=== PATIENT | male | born 1935 | race Caucasian/White ===

== ENCOUNTER 2017-08-07 15:57 | Emergency (ER) | payer MEDICARE, OTHER ==
[2017-08-07 16:40] VITALS: BP 140/71
[2017-08-07] MEDS ORDERED: methylPREDNISolone Sodium Succinate 125 MG/2 ML SDV IM ONE (17:25)
--- NOTE | 2017-08-07 17:30 | EDM.PDOC ---
ED HPI GENERAL MEDICAL PROBLEM - General Chief Complaint: Allergic Reaction Stated Complaint: ALLERGIC REACTION Time Seen by Provider: 08/07/17 16:50 Source of Information: Reports: Patient, Family History Limitations: Reports: No Limitations - History of Present Illness INITIAL COMMENTS - FREE TEXT/NARRATIVE: Pt just got back from [place] from visiting his family . He had some of his usual foods, nothing out of the ordinary. He then noted that his tongue was swelling. He took 50mg of benadryl. He has been here for about 1/2 hour and he feels like the swelling is going down. This did happen one other time and at that time he was on lisinopril and he was taken off of it at that time. Onset: Today, Sudden Duration: Hour(s): Location: Reports: Face, Other ( tongue was swollen. ) Associated Symptoms: Reports: No Other Symptoms - Related Data Allergies Allergy/AdvReac Type Severity Reaction Status Date / Time DIAGNOSTIC X-RAY MATERIAL Allergy Cannot Uncoded 07/12/16 14:14 Remember Home Meds: Home Meds Acetaminophen 325 mg PO Q6H PRN 03/06/14 [History] Aspirin [Tray Chewable] 325 mg PO DAILY 03/06/14 [History] Cyclobenzaprine [Flexeril] 10 mg PO TID PRN 03/06/14 [History] Gabapentin [Neurontin] 400 mg PO TID 03/06/14 [History] Gemfibrozil [Lopid] 600 mg PO BIDAC 03/06/14 [History] Multivitamin [Multivitamins] 1 each PO DAILY 03/06/14 [History] Pravastatin [Pravachol] 40 mg PO BEDTIME 03/06/14 [History] Warfarin Sliding Scale [Coumadin Sliding Scale] 5 each PO MOWEFR 03/06/14 [ History] amLODIPine Besylate [Amlodipine Besylate] 10 mg PO DAILY 03/06/14 [History] metFORMIN [metFORMIN XR] 1,000 mg PO BIDM 03/06/14 [History] Cholecalciferol (Vitamin D3) [Cholecalciferol] 2,000 units PO DAILY 04/01/15 [ History] Furosemide [Lasix] 10 mg PO DAILY 04/01/15 [History] Warfarin Sliding Scale [Coumadin Sliding Scale] 2.5 mg PO ASDIRECTED 04/01/15 [ History] Cyanocobalamin (Vitamin B-12) [B-12] 1 tab PO DAILY 07/12/16 [History] Magnesium Oxide 400 mg PO DAILY 07/12/16 [History] Tamsulosin [Flomax] 0.4 mg PO DAILY 07/12/16 [History] Metoprolol Tartrate 25 mg PO BID 08/07/17 [History] prednisoLONE Acetate [Pred Forte 1% Ophth Susp] 5 ml EYEBOTH ASDIRECTED [History] Past Medical History HEENT History: Reports: Hard of Hearing Cardiovascular History: Reports: Afib, High Cholesterol, Hypertension, Stents Genitourinary History: Reports: BPH Neurological History: Reports: Other (See Below) Other Neuro History: Bels palsy Endocrine/Metabolic History: Reports: Diabetes, Type II - Past Surgical History Cardiovascular Surgical History: Reports: Coronary Artery Bypass, Coronary Artery Stent Social & Family History - Tobacco Use Smoking Status *Q: Never Smoker Years of Tobacco use: 60 Second Hand Smoke Exposure: No - Caffeine Use Caffeine Use: Reports: Coffee - Alcohol Use Days Per Week of Alcohol Use: 7 Number of Drinks Per Day: 2 Total Drinks Per Week: 14 - Recreational Drug Use Recreational Drug Use: No ED ROS ALLERGIC REACTION - Review of Systems Review Of Systems: See Below Constitutional: Reports: No Symptoms HEENT: Reports: Other ( tongue is swollen) Respiratory: Reports: Other (pt has not had sob. ) Cardiovascular: Reports: No Symptoms Endocrine: Reports: No Symptoms GI/Abdominal: Reports: No Symptoms : Reports: No Symptoms Musculoskeletal: Reports: No Symptoms Skin: Reports: No Symptoms ED EXAM GENERAL NO PERIP PULSE - Physical Exam Exam: See Below Text/Narrative:: Pt arrived with swelling of his tongue. He did take benadryl prior to arriving and the swelling has gone down. Exam Limited By: No Limitations General Appearance: Alert, Anxious, Mild Distress Nose: Normal Inspection Throat/Mouth: Other ( Tongue is thick and swollen throat does not look swollen. ) Head: Atraumatic Neck: Normal Inspection Respiratory/Chest: No Respiratory Distress, Other (pt has notfelt sob and is not wheezy. ) Cardiovascular: Regular Rate, Rhythm GI/Abdominal: Soft, Non-Tender (Male) Exam: Deferred Rectal (Males) Exam: Deferred Back Exam: Normal Inspection Extremities: Normal Inspection Neurological: Alert, Oriented Psychiatric: Normal Affect Skin Exam: Other (pt has no rash. ) Course - Vital Signs Last Recorded V/S: Last Vital Signs Temp 36.8 C 08/07/17 16:39 Pulse 74 08/07/17 16:39 Resp 18 08/07/17 16:39 BP 140/71 08/07/17 16:39 Pulse Ox 95 08/07/17 16:39 - Re-Assessments/Exams Free Text/Narrative Re-Assessment/Exam: 08/07/17 17:32 pt was given solu medrol 125im. Departure - Departure Time of Disposition: 17:32 Disposition: Home, Self-Care 01 Condition: Fair Clinical Impression: Allergic angioedema - Discharge Information Referrals: John Damon MD [Primary Care Provider] - Care Plan Goals: rtc if worse, use benadryl 50mg tonight before going to bed.
== END 2017-08-07 17:57 | disposition home or self-care (01) ==
LOC: JP.ED 15:57
DX: T78.3XXA Angioneurotic edema, initial encounter (principal); I48.91 Unspecified atrial fibrillation; E78.00 Pure hypercholesterolemia, unspecified; E11.9 Type 2 diabetes mellitus without complications; I10 Essential (primary) hypertension; Z95.5 Presence of coronary angioplasty implant and graft; Z95.1 Presence of aortocoronary bypass graft; Z79.84 Long term (current) use of oral hypoglycemic drugs; Z79.01 Long term (current) use of anticoagulants; Z79.82 Long term (current) use of aspirin
CPT/HCPCS: 96372; 99283; J2930

== ENCOUNTER 2018-03-16 14:24 | Emergency (ER) | payer MEDICARE, OTHER ==
[2018-03-16 14:39] VITALS: BP 156/74
[2018-03-16] MEDS ORDERED: methylPREDNISolone Sodium Succinate 125 MG/2 ML SDV IM ONE (15:04)
--- NOTE | 2018-03-16 15:07 | EDM.PDOC ---
ED HPI GENERAL MEDICAL PROBLEM - General Chief Complaint: Allergic Reaction Stated Complaint: FACIAL SWELLING Time Seen by Provider: 03/16/18 14:59 Source of Information: Reports: Patient, Old Records, RN Notes Reviewed History Limitations: Reports: No Limitations - History of Present Illness INITIAL COMMENTS - FREE TEXT/NARRATIVE: 82-year-old gentleman presents to the emergency department today with a rash on his trunk and arms as well as some facial swelling predominantly around the lips denies any difficulty breathing denies any difficulty swallowing, does admit to new laundry detergent about 10 days prior - Related Data Allergies Allergy/AdvReac Type Severity Reaction Status Date / Time DIAGNOSTIC X-RAY MATERIAL Allergy Cannot Uncoded 11/17/17 14:33 Remember Home Meds: Home Meds Acetaminophen 325 mg PO Q6H PRN 03/06/14 [History] Aspirin [Tray Chewable] 325 mg PO DAILY 03/06/14 [History] Cyclobenzaprine [Flexeril] 10 mg PO TID PRN 03/06/14 [History] Gabapentin [Neurontin] 400 mg PO TID 03/06/14 [History] Gemfibrozil [Lopid] 600 mg PO BIDAC 03/06/14 [History] Multivitamin [Multivitamins] 1 each PO DAILY 03/06/14 [History] Pravastatin [Pravachol] 40 mg PO BEDTIME 03/06/14 [History] Warfarin Sliding Scale [Coumadin Sliding Scale] 5 each PO MOWEFR 03/06/14 [ History] amLODIPine Besylate [Amlodipine Besylate] 10 mg PO DAILY 03/06/14 [History] metFORMIN [metFORMIN XR] 1,000 mg PO BIDM 03/06/14 [History] Cholecalciferol (Vitamin D3) [Cholecalciferol] 2,000 units PO DAILY 04/01/15 [ History] Furosemide [Lasix] 10 mg PO DAILY 04/01/15 [History] Warfarin Sliding Scale [Coumadin Sliding Scale] 2.5 mg PO ASDIRECTED 04/01/15 [ History] Cyanocobalamin (Vitamin B-12) [B-12] 1 tab PO DAILY 07/12/16 [History] Magnesium Oxide 400 mg PO DAILY 07/12/16 [History] Tamsulosin [Flomax] 0.4 mg PO DAILY 07/12/16 [History] Metoprolol Tartrate 25 mg PO BID 08/07/17 [History] Past Medical History HEENT History: Reports: Hard of Hearing Cardiovascular History: Reports: Afib, High Cholesterol, Hypertension, Stents Genitourinary History: Reports: BPH Musculoskeletal History: Reports: Arthritis Neurological History: Reports: Other (See Below) Other Neuro History: Bels palsy Endocrine/Metabolic History: Reports: Diabetes, Type II Dermatologic History: Reports: Other (See Below) Other Dermatologic History: hives on chest and back given benadryl 25mg at clinic today and told to come to the ER - Past Surgical History Cardiovascular Surgical History: Reports: Coronary Artery Bypass, Coronary Artery Stent Social & Family History - Tobacco Use Smoking Status *Q: Current Some Day Smoker Years of Tobacco use: 1 Packs/Tins Daily: 1 Second Hand Smoke Exposure: No - Caffeine Use Caffeine Use: Reports: Coffee - Alcohol Use Days Per Week of Alcohol Use: 7 Number of Drinks Per Day: 2 Total Drinks Per Week: 14 - Recreational Drug Use Recreational Drug Use: No ED ROS ALLERGIC REACTION - Review of Systems Review Of Systems: See Below Constitutional: Reports: No Symptoms HEENT: Reports: No Symptoms Respiratory: Reports: No Symptoms Cardiovascular: Reports: No Symptoms Skin: Reports: Pruritis, Rash ED EXAM GENERAL NO PERIP PULSE - Physical Exam Exam: See Below Exam Limited By: No Limitations General Appearance: Alert, WD/WN, No Apparent Distress Head: Atraumatic, Normocephalic Neck: Normal Inspection, Supple, Non-Tender, Full Range of Motion Respiratory/Chest: No Respiratory Distress, Lungs Clear, Normal Breath Sounds, No Accessory Muscle Use Cardiovascular: Regular Rate, Rhythm, No Murmur Skin Exam: Warm, Rash, Other (Hives) Course - Vital Signs Last Recorded V/S: Last Vital Signs Temp 98.4 F 03/16/18 14:38 Pulse 66 03/16/18 14:38 Resp 18 03/16/18 14:38 BP 156/74 H 03/16/18 14:38 Pulse Ox - Orders/Labs/Meds Meds: Medications Discontinued Medications Generic Name Dose Route Start Last Admin Trade Name Freq PRN Reason Stop Dose Admin Methylprednisolone Sodium Succinate 125 mg 03/16/18 15:04 03/16/18 15:11 Solu-Medrol IM 03/16/18 15:05 125 mg ONETIME ONE Administration Departure - Departure Time of Disposition: 15:38 Disposition: Home, Self-Care 01 Condition: Good Clinical Impression: Hives - Discharge Information Referrals: John Damon MD [Primary Care Provider] - Forms: ED Department Discharge Additional Instructions: Take full course of prednisone 20 mg once a day for 5 days start tomorrow, use Benadryl as needed for itching symptoms, remember that your blood sugar will be elevated while on the prednisone, Please followup with your primary care provider in 3-5 days if not better, please call return to the emergency department with worsening of symptoms. - Assessment/Plan Plan: Assessment Acuity = acute Site and laterality = hives Etiology = possibly secondary to new laundry detergent Manifestations = rash Location of injury = Home Lab values = none Plan He was given Benadryl in the clinic prior to arrival here, given 125 mg Solu- Medrol here IM discharge home with prednisone 20 mg once day for 5 days Benadryl as needed follow-up with primary care 3-5 days if not better This note was dictated using [employer] voice recognition software please call with any questions on syntax or corina.
== END 2018-03-16 15:57 | disposition home or self-care (01) ==
LOC: JP.ED 14:24
DX: L50.9 Urticaria, unspecified (principal); I48.91 Unspecified atrial fibrillation; I10 Essential (primary) hypertension; E11.9 Type 2 diabetes mellitus without complications; E78.00 Pure hypercholesterolemia, unspecified; I25.810 Atherosclerosis of coronary artery bypass graft(s) without angina pectoris; F17.210 Nicotine dependence, cigarettes, uncomplicated; Z91.041 Radiographic dye allergy status; Z79.899 Other long term (current) drug therapy; Z79.84 Long term (current) use of oral hypoglycemic drugs; Z79.01 Long term (current) use of anticoagulants; Z95.1 Presence of aortocoronary bypass graft
CPT/HCPCS: 96372; 99283; J2930

== ENCOUNTER 2019-05-29 11:42 | Emergency (ER) | payer MEDICARE, OTHER ==
--- NOTE | 2019-05-29 12:55 | EDM.PDOC ---
ED HPI GENERAL MEDICAL PROBLEM - General Chief Complaint: Abdominal Pain Stated Complaint: SHARP PAIN IN RIGHT RIB AREA Time Seen by Provider: 05/29/19 12:40 Source of Information: Reports: Patient, Old Records, RN History Limitations: Reports: No Limitations - History of Present Illness INITIAL COMMENTS - FREE TEXT/NARRATIVE: 83 yo male recently had some stents revised in both groins. He has been taking Lovenox and now since last night warfarin. He presents today with 2 concerns, first that he is black and blue in his groins and he has some localized sharp pain with getting up or deep breathing in the R anterior/lower chest. He has no fever or SOB. Onset: Gradual Duration: Day(s):, Getting Worse Location: Reports: Pelvis (both groins black and blue, R ant/lower chest intermittent sharp pains.) Quality: Reports: Sharp (chest on R) Severity: Mild Improves with: Reports: Rest Worsens with: Reports: Movement Context: Reports: Other (unknown) Associated Symptoms: Reports: Chest Pain (pleuritic and intermitten R lower/ant chest). 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: Other (see below) (none) - Related Data Allergies Allergy/AdvReac Type Severity Reaction Status Date / Time lisinopril Allergy Swelling Verified 05/29/19 12:38 Home Meds: Home Meds Cyclobenzaprine [Flexeril] 10 mg PO TID PRN 03/06/14 [History] Gabapentin [Neurontin] 400 mg PO TID 03/06/14 [History] Multivitamin [Multivitamins] 1 each PO DAILY 03/06/14 [History] Warfarin Sliding Scale [Coumadin Sliding Scale] 5 mg PO MOFR 03/06/14 [History] amLODIPine Besylate [Amlodipine Besylate] 5 mg PO DAILY 03/06/14 [History] metFORMIN [metFORMIN XR] 1,000 mg PO BIDM 03/06/14 [History] Furosemide [Lasix] 40 mg PO DAILY 04/01/15 [History] Warfarin Sliding Scale [Coumadin Sliding Scale] 2.5 mg PO SUTUWETHSA 04/01/15 [ History] Cyanocobalamin (Vitamin B-12) [B-12] 1 tab PO DAILY 07/12/16 [History] Tamsulosin [Flomax] 0.4 mg PO DAILY 07/12/16 [History] Carvedilol 12.5 mg PO BID 04/04/18 [History] Nitroglycerin [Nitrostat] 0.4 mg SL ASDIRECTED PRN 04/04/18 [History] Saw [place] Fruit [Saw [place]] 450 mg PO BID 05/25/18 [History] Aspirin [Halfprin] 81 mg PO DAILY 12/29/18 [History] Glimepiride [Amaryl] 2 mg PO WITHBREAKFAST 12/29/18 [History] Metaxalone 800 mg PO TID PRN 12/29/18 [History] Spironolactone [Aldactone] 12.5 mg PO DAILY 12/29/18 [History] atorvaSTATin [Lipitor] 40 mg PO BEDTIME 12/29/18 [History] Furosemide 20 mg PO PCLUNCH 05/29/19 [History] Past Medical History HEENT History: Reports: Hard of Hearing Cardiovascular History: Reports: Afib, High Cholesterol, Hypertension, Stents Genitourinary History: Reports: BPH Musculoskeletal History: Reports: Arthritis Neurological History: Reports: Other (See Below) Other Neuro History: Bels palsy Endocrine/Metabolic History: Reports: Diabetes, Type II Dermatologic History: Reports: Other (See Below) Other Dermatologic History: hives on chest and back given benadryl 25mg at clinic today and told to come to the ER - Past Surgical History Cardiovascular Surgical History: Reports: Coronary Artery Bypass, Coronary Artery Stent Social & Family History - Caffeine Use Caffeine Use: Reports: Coffee ED ROS GENERAL - Review of Systems Review Of Systems: See Below Constitutional: Reports: No Symptoms HEENT: Reports: No Symptoms Respiratory: Reports: Pleuritic Chest Pain (R ant/lower chest). Denies: Shortness of Breath, Cough, Sputum, Hemoptysis Cardiovascular: Reports: No Symptoms Endocrine: Reports: No Symptoms GI/Abdominal: Reports: No Symptoms : Reports: No Symptoms Musculoskeletal: Reports: No Symptoms Skin: Reports: No Symptoms Neurological: Reports: No Symptoms Psychiatric: Reports: No Symptoms ED EXAM, GENERAL - Physical Exam Exam: See Below Exam Limited By: No Limitations General Appearance: Alert, WD/WN, No Apparent Distress Eye Exam: Bilateral Eye: Normal Inspection Ears: Normal External Exam, Normal Canal, Hearing Grossly Normal, Normal TMs Ear Exam: Bilateral Ear: Auricle Normal, Canal Normal, TM normal Nose: Normal Inspection, No Blood Throat/Mouth: Normal Inspection, Normal Lips, Normal Oropharynx, Normal Voice, No Airway Compromise Head: Atraumatic, Normocephalic Neck: Normal Inspection, Supple, Non-Tender Respiratory/Chest: No Respiratory Distress, Lungs Clear, Normal Breath Sounds, Other (Bottom R sided anterior rib tender with palpation. ). No: Chest Non- Tender GI/Abdominal: Normal Bowel Sounds, Soft, Non-Tender, No Distention Back Exam: Normal Inspection Neurological: Alert, Oriented, CN II-XII Intact, Normal Cognition, No Motor/ Sensory Deficits Psychiatric: Normal Affect, Normal Mood Skin Exam: Warm, Dry, Intact, No Rash, Ecchymosis (both groins and genitalia) Course - Vital Signs Last Recorded V/S: Last Vital Signs Temp 35.9 C 05/29/19 12:30 Pulse 60 05/29/19 12:30 Resp 16 05/29/19 12:30 BP 132/74 05/29/19 12:30 Pulse Ox 95 05/29/19 12:30 Departure - Departure Time of Disposition: 12:56 Disposition: Home, Self-Care 01 Condition: Good Clinical Impression: Ecchymosis, Rib pain on right side - Discharge Information *PRESCRIPTION DRUG MONITORING PROGRAM REVIEWED*: No *COPY OF PRESCRIPTION DRUG MONITORING REPORT IN PATIENT RUBEN: No Instructions: Chest Wall Pain, [id number] Referrals: John Damon MD [Primary Care Provider] - Additional Instructions: Take acetaminophen as needed for pain relief. Recheck with your provider as needed.
[2019-05-29 13:19] VITALS: BP 111/59
== END 2019-05-29 13:17 | disposition home or self-care (01) ==
LOC: JP.ED 11:42
DX: R07.81 Pleurodynia (principal); R58 Hemorrhage, not elsewhere classified; I48.91 Unspecified atrial fibrillation; E78.00 Pure hypercholesterolemia, unspecified; I10 Essential (primary) hypertension; Z95.5 Presence of coronary angioplasty implant and graft; E11.9 Type 2 diabetes mellitus without complications; Z88.8 Allergy status to other drugs, medicaments and biological substances; Z79.899 Other long term (current) drug therapy; Z79.82 Long term (current) use of aspirin; Z79.01 Long term (current) use of anticoagulants; Z79.84 Long term (current) use of oral hypoglycemic drugs
CPT/HCPCS: 99283

== ENCOUNTER 2019-06-11 12:54 | Emergency (ER) | payer MEDICARE, OTHER ==
[2019-06-11 13:26] VITALS: BP 140/50; PULSE 63
--- NOTE | 2019-06-11 13:56 | EDM.PDOC ---
ED HPI GENERAL MEDICAL PROBLEM - General Chief Complaint: Eye Problems Stated Complaint: MEDICAL Time Seen by Provider: 06/11/19 13:40 Source of Information: Reports: Patient, Family, RN Notes Reviewed History Limitations: Reports: No Limitations - History of Present Illness INITIAL COMMENTS - FREE TEXT/NARRATIVE: 83-year-old gentleman presents emergency department today with complaint of sudden loss of vision left thigh he does have some sparing what he describes as a small [place] superior lateral quadrant. He denies any trauma no other abnormal deficits at this time does have history of atrial fibrillation currently on anticoagulation therapy she has been therapeutic - Related Data Allergies Allergy/AdvReac Type Severity Reaction Status Date / Time lisinopril Allergy Swelling Verified 06/11/19 13:32 Home Meds: Home Meds Cyclobenzaprine [Flexeril] 10 mg PO TID PRN 03/06/14 [History] Gabapentin [Neurontin] 400 mg PO TID 03/06/14 [History] Multivitamin [Multivitamins] 1 each PO DAILY 03/06/14 [History] Warfarin Sliding Scale [Coumadin Sliding Scale] 5 mg PO MOFR 03/06/14 [History] amLODIPine Besylate [Amlodipine Besylate] 5 mg PO DAILY 03/06/14 [History] metFORMIN [metFORMIN XR] 1,000 mg PO BIDM 03/06/14 [History] Furosemide [Lasix] 40 mg PO DAILY 04/01/15 [History] Warfarin Sliding Scale [Coumadin Sliding Scale] 2.5 mg PO SUTUWETHSA 04/01/15 [ History] Cyanocobalamin (Vitamin B-12) [B-12] 1 tab PO DAILY 07/12/16 [History] Tamsulosin [Flomax] 0.4 mg PO DAILY 07/12/16 [History] Carvedilol 12.5 mg PO BID 04/04/18 [History] Nitroglycerin [Nitrostat] 0.4 mg SL ASDIRECTED PRN 04/04/18 [History] Saw [place] Fruit [Saw [place]] 450 mg PO BID 05/25/18 [History] Aspirin [Halfprin] 81 mg PO DAILY 12/29/18 [History] Glimepiride [Amaryl] 2 mg PO WITHBREAKFAST 12/29/18 [History] Metaxalone 800 mg PO TID PRN 12/29/18 [History] Spironolactone [Aldactone] 12.5 mg PO DAILY 12/29/18 [History] atorvaSTATin [Lipitor] 40 mg PO BEDTIME 12/29/18 [History] Furosemide 20 mg PO PCLUNCH 05/29/19 [History] Hydrocortisone Acetate [Anucort-HC] 06/11/19 [History] Past Medical History HEENT History: Reports: Hard of Hearing Cardiovascular History: Reports: Afib, CAD, High Cholesterol, Hypertension, Stents Genitourinary History: Reports: BPH Musculoskeletal History: Reports: Arthritis Neurological History: Reports: Other (See Below) Other Neuro History: Bels palsy Endocrine/Metabolic History: Reports: Diabetes, Type II Hematologic History: Reports: Anticoagulation Therapy Oncologic (Cancer) History: Reports: Pancreatic Dermatologic History: Reports: Other (See Below) Other Dermatologic History: hives on chest and back given benadryl 25mg at clinic today and told to come to the ER - Past Surgical History Cardiovascular Surgical History: Reports: Coronary Artery Bypass, Coronary Artery Stent GI Surgical History: Reports: Colonoscopy Social & Family History - Tobacco Use Smoking Status *Q: Never Smoker - Caffeine Use Caffeine Use: Reports: Coffee ED ROS GENERAL - Review of Systems Review Of Systems: See Below Constitutional: Reports: No Symptoms HEENT: Reports: Vision Change Respiratory: Reports: No Symptoms Cardiovascular: Reports: No Symptoms GI/Abdominal: Reports: No Symptoms : Reports: No Symptoms Musculoskeletal: Reports: No Symptoms Skin: Reports: No Symptoms Neurological: Reports: No Symptoms ED EXAM GENERAL W FULL EYE - Physical Exam Exam: See Below Exam Limited By: No Limitations General Appearance: Alert, WD/WN, No Apparent Distress Eye Exam: Left Eye: Vision Changes (Vision is present superior lateral quadrant) , Bilateral Eye: EOMI, Normal Inspection, PERRL Eyelids: Bilateral: Normal Appearance Conjunctiva & Sclera: Bilateral: Normal Appearance Extraocular Movements: Bilateral: Intact Pupillary Size: Bilateral: 2 mm Pupillary Reaction: Bilateral: Brisk Neck: Normal Inspection, Supple, Non-Tender, Full Range of Motion Respiratory/Chest: No Respiratory Distress, Lungs Clear, Normal Breath Sounds, No Accessory Muscle Use, Chest Non-Tender Cardiovascular: Diastolic Murmur, Irregularly Irregular GI/Abdominal: Soft, Non-Tender Back Exam: Normal Inspection, Full Range of Motion, NT Neurological: Alert, Oriented, CN II-XII Intact, Normal Cognition, No Motor/ Sensory Deficits Course - Vital Signs Last Recorded V/S: Last Vital Signs Temp 97.8 F 06/11/19 13:38 Pulse 63 06/11/19 13:38 Resp 19 06/11/19 13:38 BP 140/50 L 06/11/19 13:38 Pulse Ox 95 06/11/19 13:38 - Orders/Labs/Meds Orders: Active Orders 24 hr Category Date Time Status SEDIMENTATION RATE MANUAL [HEME] Stat Lab 06/11/19 14:47 Ordered Labs: Laboratory Tests 06/11/19 06/11/19 06/11/19 Range/Units 13:47 13:47 13:47 WBC 5.5 (4.5-11.0) K/uL RBC 3.50 L (4.30-5.90) M/uL Hgb 11.0 L (12.0-15.0) g/dL Hct 34.5 L (40.0-54.0) % MCV 99 H (80-98) fL MCH 31 (27-31) pg MCHC 32 (32-36) % Plt Count 215 (150-400) K/uL Neut % (Auto) 55 (36-66) % Lymph % (Auto) 29 (24-44) % [place] % (Auto) 10 H (2-6) % Eos % (Auto) 5 H (2-4) % Baso % (Auto) 0 (0-1) % PT 23.5 H (9.5-12.0) sec INR 2.28 H (0.80-1.20) APTT 33.7 (27.0-36.0) sec Sodium 138 L (140-148) mmol/L Potassium 4.6 (3.6-5.2) mmol/L Chloride 99 L (100-108) mmol/L Carbon Dioxide 33 H (21-32) mmol/L Anion Gap 10.6 (5.0-14.0) mmol/L BUN 20 H (7-18) mg/dL Creatinine 1.2 (0.8-1.3) mg/dL Est Cr Clr Drug Dosing 51.19 mL/min Estimated GFR (MDRD) 58 L (>60) Glucose 189 H (74-106) mg/dL Calcium 9.0 (8.5-10.1) mg/dL Total Bilirubin 0.6 (0.2-1.0) mg/dL AST 24 (15-37) U/L ALT 30 (12-78) U/L Alkaline Phosphatase 112 (46-116) U/L C-Reactive Protein (0.0-0.3) mg/dL Total Protein 6.8 (6.4-8.2) g/dL Albumin 3.3 L (3.4-5.0) g/dL Globulin 3.5 (2.3-3.5) g/dL Albumin/Globulin Ratio 0.9 L (1.2-2.2) 06/11/19 Range/Units 14:47 WBC (4.5-11.0) K/uL RBC (4.30-5.90) M/uL Hgb (12.0-15.0) g/dL Hct (40.0-54.0) % MCV (80-98) fL MCH (27-31) pg MCHC (32-36) % Plt Count (150-400) K/uL Neut % (Auto) (36-66) % Lymph % (Auto) (24-44) % [place] % (Auto) (2-6) % Eos % (Auto) (2-4) % Baso % (Auto) (0-1) % PT (9.5-12.0) sec INR (0.80-1.20) APTT (27.0-36.0) sec Sodium (140-148) mmol/L Potassium (3.6-5.2) mmol/L Chloride (100-108) mmol/L Carbon Dioxide (21-32) mmol/L Anion Gap (5.0-14.0) mmol/L BUN (7-18) mg/dL Creatinine (0.8-1.3) mg/dL Est Cr Clr Drug Dosing mL/min Estimated GFR (MDRD) (>60) Glucose (74-106) mg/dL Calcium (8.5-10.1) mg/dL Total Bilirubin (0.2-1.0) mg/dL AST (15-37) U/L ALT (12-78) U/L Alkaline Phosphatase (46-116) U/L C-Reactive Protein 0.42 H (0.0-0.3) mg/dL Total Protein (6.4-8.2) g/dL Albumin (3.4-5.0) g/dL Globulin (2.3-3.5) g/dL Albumin/Globulin Ratio (1.2-2.2) Departure - Departure Time of Disposition: 15:06 Disposition: DC/Tfer to Acute Hospital 02 Condition: Poor Clinical Impression: Vision loss, left eye - Discharge Information Referrals: John Damon MD [Primary Care Provider] - Forms: ED Department Discharge Additional Instructions: Please report to the [place] [email or web address] - My Orders Last 24 Hours: My Active Orders 06/11/19 14:47 SEDIMENTATION RATE MANUAL [HEME] Stat - Assessment/Plan Last 24 Hours: My Active Orders 06/11/19 14:47 SEDIMENTATION RATE MANUAL [HEME] Stat Plan: Assessment Acuity = acute Site and laterality = loss of vision left eye sparing superior lateral quadrant complicated in a patient with known history of hypertension, coronary artery disease, diabetes mellitus type 2 and atrial fibrillation on anticoagulation therapy Etiology = suspicious for retinal artery occlusion Manifestations = none Location of injury = Home Lab values = hemoglobin low 11.0 consistent normochromic anemia INR therapeutic 2.28 CRP slightly elevated 0.47 CMP unremarkable sedimentation rate is pending CT scan shows no acute process Plan Called and discussed the case with neurology on-call [facility] as well as ophthalmology on-call doctor Narayan [id number] also discussed case with the emergency room physician Dr. Lundberg at 1500 kindly accepted the patient for further evaluation. He will be transferred via private vehicle will report to the emergency department for further evaluation by Dr. Busch with possible admission This note was dictated using [employer] voice recognition software please call with any questions on syntax or grammar.
--- NOTE | 2019-06-11 14:23 | CRLCT ---
HISTORY: Loss of vision left side. COMPARISON: None. TECHNIQUE: Noncontrast axial images were obtained through the brain. FINDINGS: Mild volume loss. Jean-white matter differentiation is preserved. No evidence for acute intracranial hemorrhage or infarction. No midline shift or mass effect. The ventricles are nondilated and symmetric. No abnormal intra or extra-axial fluid collection. The bony calvaria are intact. Visualized paranasal sinuses and mastoid air cells are clear. IMPRESSION: No acute intracranial pathology. Please note that all CT scans at this facility use dose modulation, iterative reconstruction, and/or weight-based dosing when appropriate to reduce radiation dose to as low as reasonably achievable. Dictated by Serena Licona MD @ Jun 11 2019 2:21PM Signed by Dr. Serena Licona @ Jun 11 2019 2:21PM
== END 2019-06-11 16:04 ==
LOC: JP.ED 12:54
DX: H54.7 Unspecified visual loss (principal); I10 Essential (primary) hypertension; I25.10 Atherosclerotic heart disease of native coronary artery without angina pectoris; E11.9 Type 2 diabetes mellitus without complications; I48.91 Unspecified atrial fibrillation; Z79.01 Long term (current) use of anticoagulants; Z79.82 Long term (current) use of aspirin
CPT/HCPCS: 36415; 70450; 80053; 85025; 85610; 85651; 85730; 86140; 99284; 99284-25